=== PATIENT | female | born 1930 | race Caucasian/White ===

== ENCOUNTER 2020-11-28 11:25 | Outpatient (CLI) | payer MEDICARE | END 2020-11-28 11:26 | disposition critical access hospital (66) | LOC: EMS 11:25 | PROVIDERS: ATTEND Emergency Medicine | DX: R45.1 Restlessness and agitation (principal) ==

== ENCOUNTER 2020-11-28 11:41 | Emergency (ER) | payer MEDICARE, OTHER ==
--- NOTE | 2020-11-28 13:52 | ED Physician Documentation ---
History of Present Illness - Stated complaint Stated Complaint: AMS - Chief complaint Chief Complaint: Neuro - History obtained from History obtained from: Other (RN director at [facility] Joanie Wong) - Additonal information Additional information: 89yF with pmh dementia at [facility] memory care unit for past few years p/w gradual onset worsening aggressiveness in the evenings over the past several months, worsening to the point where she was reported by DYANA Nair, director at [facility] to be verbally abusive, screaming and agitated this morning, prompting them to send her to the ed for evaluation. Attempted to contact son several times but unable to do so. Will obtain screening labwork/ua for now. Seroquel 12.5mg daily added 2 weeks ago. Sertraline increased to 50mg daily last week. PMH - cardiac stents, uterine prolapse PSH - hip replacement PD PAST MEDICAL HISTORY - Past Medical History Past Medical History: Yes Cardiovascular: Coronary artery disease Neuro: Alzhiemer's, Dementia - Past Surgical History Past Surgical History: Yes Ortho: Hip replacement - Present Medications Home Medications: Ambulatory Orders Medication Instructions Recorded Confirmed Carbamide Peroxide Otic Drop 4 drops .ROUTE . 11/28/20 11/28/20 [Debrox Otic Drops] Cyanocobalamin (Vitamin B-12) 100 mcg PO DAILY 11/28/20 11/28/20 [Vitamin B-12] LORazepam [Ativan] 0.5 mg PO PRN PRN 11/28/20 11/28/20 Losartan Potassium 25 mg PO DAILY 11/28/20 11/28/20 QUEtiapine [SEROquel] 25 mg PO DAILY 11/28/20 11/28/20 Sertraline HCl [Zoloft] 25 mg PO DAILY 11/28/20 11/28/20 - Social History Does the pt smoke?: No Smoking Status: Never smoker Does the pt drink ETOH?: No Does the pt have substance abuse?: No Results - Vitals Vitals: Vital Signs - 24 hr 11/28/20 11/28/20 11/28/20 11:43 11:50 13:19 Temperature 37.1 C 36.4 C L Heart Rate 91 92 86 Respiratory 15 16 22 Rate Blood Pressure 137/78 H 142/78 H 173/90 H O2 Saturation 93 91 L 94 11/28/20 15:00 Temperature 36.8 C Heart Rate 85 Respiratory 19 Rate Blood Pressure 170/93 H O2 Saturation 93 Oxygen O2 Source Room air - Labs Labs: Laboratory Tests 11/28/20 11/28/20 11/28/20 14:13 14:17 14:17 WBC 8.6 RBC 4.70 Hgb 13.5 Hct 43.1 MCV 91.7 MCH 28.7 MCHC 31.3 L RDW 14.6 Plt Count 268 MPV 9.1 Neut # (Auto) 6.5 Lymph # (Auto) 1.5 [place] # (Auto) 0.5 Eos # (Auto) 0.0 Baso # (Auto) 0.1 Absolute Nucleated RBC 0.00 Nucleated RBC % 0.0 Sodium 143 Potassium 4.1 Chloride 104 Carbon Dioxide 24 Anion Gap 15.0 H BUN 26 H Creatinine 1.4 H Estimated GFR (MDRD) 35 L Glucose 99 Calcium 9.6 Total Bilirubin 1.1 H AST 18 ALT 14 Alkaline Phosphatase 84 Ammonia Total Protein 7.5 Albumin 4.1 Globulin 3.4 Albumin/Globulin Ratio 1.2 Lipase 26 Urine Color YELLOW Urine Clarity CLEAR Urine pH 6.5 Ur Specific [place] 1.020 Urine Protein 30 H Urine Glucose (UA) NEGATIVE Urine Ketones NEGATIVE Urine Occult Blood TRACE-INTA Urine Nitrite NEGATIVE Urine Bilirubin NEGATIVE Urine Urobilinogen 0.2 (NORMAL) Ur Leukocyte Esterase SMALL H Urine RBC None Seen Urine WBC 0-3 Ur Squamous Epith Cells RARE Squamous Amorphous Sediment Rare Urine Bacteria Rare Ur Microscopic Review INDICATED Urine Culture Comments INDICATED 11/28/20 14:38 WBC RBC Hgb Hct MCV MCH MCHC RDW Plt Count MPV Neut # (Auto) Lymph # (Auto) [place] # (Auto) Eos # (Auto) Baso # (Auto) Absolute Nucleated RBC Nucleated RBC % Sodium Potassium Chloride Carbon Dioxide Anion Gap BUN Creatinine Estimated GFR (MDRD) Glucose Calcium Total Bilirubin AST ALT Alkaline Phosphatase Ammonia < 10.0 Total Protein Albumin Globulin Albumin/Globulin Ratio Lipase Urine Color Urine Clarity Urine pH Ur Specific [place] Urine Protein Urine Glucose (UA) Urine Ketones Urine Occult Blood Urine Nitrite Urine Bilirubin Urine Urobilinogen Ur Leukocyte Esterase Urine RBC Urine WBC Ur Squamous Epith Cells Amorphous Sediment Urine Bacteria Ur Microscopic Review Urine Culture Comments PD MEDICAL DECISION MAKING - ED course ED course: 89-year-old woman presents with progressive agitation due to dementia over the past several months. I discussed with her son who states that her sertraline dose was increased a week ago and her Seroquel was started a couple weeks before. We discussed that she may benefit from a higher Seroquel dose and he was agreeable. I spoke with her nurse practitioner, Elvia Verma who will see her tomorrow for possible increase in her Seroquel. Her lab work is stable according to Mrs. Verma. Shared decision not to treat for urinary tract i nfection given the small number of white blood cells on urinalysis. we will call if culture grows out anything. d/w RN director at [facility] who is agreeable to take patient back. return precautions given. Departure - Departure Disposition: 01 Home, Self Care Clinical Impression: Dementia, Agitation due to dementia Condition: Good Instructions: Dementia Comments: Mrs. Gil was seen in the emergency department for agitation related to her dementia. I Discussed with her son, Anson that she would benefit from increasing her dose of Seroquel. Her nurse practitioner, Elvia Miller, is aware of all of her blood results and urinalysis results and is planning on evaluating her tomorrow for possible increase of her Seroquel dose. Ms. Wong was calm in the emergency department. Please have her return if she experiences any new or worsening symptoms or other concerns.
[2020-11-28 14:29] LABS: EOSINOPHILS % (AUTO) 0.2 %; HGB - HEMOGLOBIN 13.5 g/dL (12.0-16.0); MEAN CORPUSCULAR VOLUME 91.7 fL (81.0-99.0); MEAN PLATELET VOLUME 9.1 fL (7.9-10.8)
[2020-11-28 14:30] LABS: BASOPHILS # (AUTO) 0.1 10^3/uL (0.0-0.1); BASOPHILS % (AUTO) 0.9 %; LYMPHOCYTES # (AUTO) 1.5 10^3/uL (1.5-3.5); LYMPHOCYTES % (AUTO) 17.2 %; MEAN CORPUSCULAR HEMOGLOBIN 28.7 pg (27.0-31.0); MEAN CORPUSCULAR HGB CONC 31.3 g/dL (32.0-36.0); MONOCYTES # (AUTO) 0.5 10^3/uL (0.0-1.0); MONOCYTES % (AUTO) 6.2 %; NEUTROPHILS # (AUTO) 6.5 10^3/uL (1.5-6.6); NEUTROPHILS % (AUTO) 75.3 %; PLT - PLATELET COUNT 268 10^3/uL (130-450); RED CELL DISTRIBUTION WIDTH 14.6 % (12.0-15.0); WHITE BLOOD COUNT 8.6 x10^3/uL (4.8-10.8)
[2020-11-28 14:37] LABS: ALBUMIN 4.1 g/dL (3.2-5.5); ALBUMIN/GLOBULIN RATIO 1.2 (1.0-2.2); BILIRUBIN,TOTAL 1.1 mg/dL (0.2-1.0); CALCIUM 9.6 mg/dL (8.5-10.3); CREATININE 1.4 mg/dL (0.4-1.0); TOTAL PROTEIN 7.5 g/dL (6.7-8.2)
[2020-11-28 14:49] LABS: BILIRUBIN,URINE NEGATIVE (NEGATIVE); GLUCOSE, URINE (UA) NEGATIVE (NEGATIVE); KETONES,URINE (UA) NEGATIVE (NEGATIVE); LEUKOCYTE ESTERASE, URINE SMALL (NEGATIVE); NITRITE,URINE NEGATIVE (NEGATIVE); OCCULT BLOOD,URINE TRACE-INTA (NEGATIVE); PH,URINE 6.5 PH (5.0-7.5); PROTEIN,URINE 30 mg/dL (NEGATIVE); UROBILINOGEN,URINE 0.2 (NORMAL) E.U./dL (NORMAL)
[2020-11-28 14:50] LABS: CLARITY,URINE CLEAR (CLEAR)
[2020-11-28 14:57] LABS: AMORPHOUS SEDIMENT,UR Rare /LPF; BACTERIA,URINE Rare /HPF (None Seen); RBC,URINE None Seen /HPF (0-5); SQUAMOUS EPITHELIAL CELL,UR RARE Squamous (<= Few)
[2020-11-28 15:01] VITALS: BP 170/93
== END 2020-11-28 16:22 | disposition home or self-care (01) ==
LOC: ED 11:41
DX: G30.9 Alzheimer's disease, unspecified (principal); F02.81 Dementia in other diseases classified elsewhere, unspecified severity, with behavioral disturbance; R45.1 Restlessness and agitation
CPT/HCPCS: 36415; 80053; 81001; 81003; 82140; 83690; 85025; 87086

== ENCOUNTER 2020-11-28 18:32 | Outpatient (CLI) | payer MEDICARE | END 2020-11-28 18:33 | disposition critical access hospital (66) | LOC: EMS 18:32 | PROVIDERS: ATTEND Emergency Medicine | DX: R45.1 Restlessness and agitation (principal); F03.91 Unspecified dementia, unspecified severity, with behavioral disturbance | CPT/HCPCS: A0425; A0429 ==

== ENCOUNTER 2020-11-28 18:47 | Emergency (ER) | payer MEDICARE, OTHER ==
--- NOTE | 2020-11-28 19:55 | ED Physician Documentation ---
History of Present Illness - Stated complaint Stated Complaint: AMS - Chief complaint Chief Complaint: General - History obtained from History obtained from: EMS - History of Present Illness Timing: Today Pain level max: 0 Pain level now: 0 - Additonal information Additional information: Patient has a history of dementia. Seen here earlier today for increasing agitation over the past several months. Case was discussed with her PCP who will see her tomorrow. They will adjust her medications at that time. When she went back to [facility], she did not want to get off of the transport bus. Therefore they called 911 to have the patient brought back to the emergency department. The facility spoke with the [facility] who stated that a DCR could be dispatched here for possible geropsych placement. Review of Systems Unable to obtain: Dementia PD PAST MEDICAL HISTORY - Past Medical History Past Medical History: Yes Cardiovascular: Coronary artery disease Neuro: Alzhiemer's, Dementia - Past Surgical History Past Surgical History: Yes Ortho: Hip replacement - Present Medications Home Medications: Ambulatory Orders Medication Instructions Recorded Confirmed Carbamide Peroxide Otic Drop 4 drops .ROUTE . 11/28/20 11/28/20 [Debrox Otic Drops] Cyanocobalamin (Vitamin B-12) 100 mcg PO DAILY 11/28/20 11/28/20 [Vitamin B-12] LORazepam [Ativan] 0.5 mg PO PRN PRN 11/28/20 11/28/20 Losartan Potassium 25 mg PO DAILY 11/28/20 11/28/20 QUEtiapine [SEROquel] 25 mg PO DAILY 11/28/20 11/28/20 Sertraline HCl [Zoloft] 25 mg PO DAILY 11/28/20 11/28/20 - Allergies Allergies/Adverse Reactions: Allergies Allergy/AdvReac Type Severity Reaction Status Date / Time Unable to Assess Allergy Verified 11/28/20 22:19 - Social History Does the pt smoke?: No Smoking Status: Never smoker Does the pt drink ETOH?: No Does the pt have substance abuse?: No - Immunizations Immunizations are current?: Yes - POLST Patient has POLST: Yes PD ED PE NORMAL - Vitals Vital signs reviewed: Yes - General General: Other (alert, pleasantly confused) - HEENT HEENT: Atraumatic, Moist mucous membranes - Neck Neck: Supple, no meningeal sign - Cardiac Cardiac: RRR - Respiratory Respiratory: No respiratory distress, Clear bilaterally - Abdomen Abdomen: Soft, Non tender, Non distended - Derm Derm: Warm and dry - Extremities Extremities: No deformity, Normal ROM s pain - Neuro Neuro: Other (alert, disoriented to person, place and time.) Results - Vitals Vitals: Vital Signs - 24 hr 11/28/20 11/28/20 18:54 19:10 Temperature 37.3 C Heart Rate 90 86 Respiratory 16 16 Rate Blood Pressure 159/83 H 159/91 H O2 Saturation 94 92 Oxygen O2 Source Room air - Labs Labs: Laboratory Tests 11/28/20 11/28/20 11/28/20 19:54 19:54 19:54 WBC 7.6 RBC 4.55 Hgb 13.0 Hct 41.6 MCV 91.4 MCH 28.6 MCHC 31.3 L RDW 14.8 Plt Count 252 MPV 8.9 Neut # (Auto) 5.6 Lymph # (Auto) 1.3 L [place] # (Auto) 0.5 Eos # (Auto) 0.0 Baso # (Auto) 0.1 Absolute Nucleated RBC 0.00 Nucleated RBC % 0.0 Sodium 140 Potassium 4.0 Chloride 108 Carbon Dioxide 23 Anion Gap 9.0 BUN 27 H Creatinine 1.4 H Estimated GFR (MDRD) 35 L Glucose 108 H Calcium 9.1 Total Bilirubin 1.2 H AST 17 ALT 12 Alkaline Phosphatase 76 Total Protein 6.9 Albumin 3.7 Globulin 3.2 Albumin/Globulin Ratio 1.2 Lipase 25 TSH 1.12 Salicylates < 6.0 Acetaminophen < 10 L Ethyl Alcohol < 5.0 PD MEDICAL DECISION MAKING - ED course Complexity details: reviewed results, re-evaluated patient, considered differential, d/w patient ED course: DCR was consulted, Deborah, no criteria for involuntary placement. Telepsychiatry will be consulted for medication recommendations. After that I anticipate the patient will be able to be discharged back to her memory care facility. Patient will be signed out to the oncoming emergency department physician awaiting telepsych evaluation for medication adjustments. She is currently on Seroquel and Zoloft only. Would likely benefit from as needed medication for agitation. This document was made in part using voice recognition software. While efforts are made to proofread this document, sound alike and grammatical errors may occur. Departure - Departure Clinical Impression: Agitation due to dementia Dementia Qualifiers: Dementia type: unspecified type Dementia behavioral disturbance: with behavioral disturbance Qualified Code(s): F03.91 - Unspecified dementia with behavioral disturbance Condition: Stable
[2020-11-28 20:02] LABS: BASOPHILS # (AUTO) 0.1 10^3/uL (0.0-0.1); BASOPHILS % (AUTO) 1.1 %; EOSINOPHILS % (AUTO) 0.3 %; LYMPHOCYTES # (AUTO) 1.3 10^3/uL (1.5-3.5); LYMPHOCYTES % (AUTO) 17.5 %; MEAN CORPUSCULAR HEMOGLOBIN 28.6 pg (27.0-31.0); MEAN CORPUSCULAR HGB CONC 31.3 g/dL (32.0-36.0); MEAN CORPUSCULAR VOLUME 91.4 fL (81.0-99.0); MEAN PLATELET VOLUME 8.9 fL (7.9-10.8); MONOCYTES # (AUTO) 0.5 10^3/uL (0.0-1.0); MONOCYTES % (AUTO) 6.8 %; NEUTROPHILS # (AUTO) 5.6 10^3/uL (1.5-6.6); NEUTROPHILS % (AUTO) 73.9 %; PLT - PLATELET COUNT 252 10^3/uL (130-450); RED BLOOD COUNT 4.55 10^6/uL (4.20-5.40); RED CELL DISTRIBUTION WIDTH 14.8 % (12.0-15.0); WHITE BLOOD COUNT 7.6 x10^3/uL (4.8-10.8)
[2020-11-28 20:20] LABS: ACETAMINOPHEN < 10 ug/mL (10-30); ALBUMIN 3.7 g/dL (3.2-5.5); ALBUMIN/GLOBULIN RATIO 1.2 (1.0-2.2); ALKALINE PHOSPHATASE 76 IU/L (42-121); ALT ALANINE AMINOTRANSFERASE 12 IU/L (10-60); AST ASPARTATE AMINOTRANSFERASE 17 IU/L (10-42); BILIRUBIN,TOTAL 1.2 mg/dL (0.2-1.0); BUN - BLOOD UREA NITROGEN 27 mg/dL (6-20); CALCIUM 9.1 mg/dL (8.5-10.3); CARBON DIOXIDE - CO2 23 mmol/L (21-32); CHLORIDE 108 mmol/L (101-111); CREATININE 1.4 mg/dL (0.4-1.0); GLUCOSE 108 mg/dL (70-100); LIPASE 25 U/L (22-51); SALICYLATE < 6.0 mg/dL; TOTAL PROTEIN 6.9 g/dL (6.7-8.2)
--- NOTE | 2020-11-29 01:35 | TELEPSYCH PHYS NOTE ---
Telepsych Note - CHIEF COMPLAINT/HX OF PRESENT ILLNESS Chief Complaint and History of Present Illness: PT is a 89y/o wf brought in from her memory care unit due to agitation. She was discharged back to the unit with recommendations for follow up with her outpatient provider later today. Pt reportedly refused to go back to the memory care facility and was subsequently brought back to the ED. She was assessed by DCR and not follow to meet psych inpatient criteria. It was requested for medication management of agitation. HPI: Pt is a 89 y/o wf with dementia who currently resides at a memory care unit. She was unable to provide history due to level of cognitive decline. PT said she did not know where she was or why. She answered "I don't know" to all questions asked to include how her mood was and if she was able to sleep. - SI/HI/SELF HARM SI/HI/Self Harm Text (Current or History of):: Pt did not know if she had ever harmed herself. It was reported that she was sent from the memory unit due to agitation. - VIOLENCE/LEGAL/COLLATERAL Violence - Legal - Collateral: none known - PSYCHIATRIC HX/TREATMENT HX Psychiatric/Treatment Hx Other: mental health history is unknown. Pt current dx'd with Alzheimer dementia. - DRUG/ALCOHOL HX Substance use/abuse/alcohol text: no current substance issues. - MEDICAL HX Does the pt have a hx of MRSA?: No Neurological History: Alzhiemer's, Dementia Cardiovascular: Coronary artery disease - SURGICAL HX Orthopedic: Hip replacement - HOME MEDICATIONS Home Meds (as last confirmed): Patient History Medication Instructions Recorded Confirmed Carbamide Peroxide Otic Drop 4 drops .ROUTE . 11/28/20 11/28/20 [Debrox Otic Drops] Cyanocobalamin (Vitamin B-12) 100 mcg PO DAILY 11/28/20 11/28/20 [Vitamin B-12] LORazepam [Ativan] 0.5 mg PO PRN PRN 11/28/20 11/28/20 Losartan Potassium 25 mg PO DAILY 11/28/20 11/28/20 QUEtiapine [SEROquel] 25 mg PO DAILY 11/28/20 11/28/20 Sertraline HCl [Zoloft] 25 mg PO DAILY 11/28/20 11/28/20 - ALLERGIES Allergies (as last confirmed): Allergies Allergy/AdvReac Type Severity Reaction Status Date / Time Unable to Assess Allergy Verified 11/28/20 22:19 - FAMILY PSYCH/SUICIDE/SOCIAL HX-MENTAL Family - Suicide - Social Hx and Mental Status Exam: family hx is unknown Social history. Pt reported to live at a memory care unit. further history is unknown. MSE: Pt was somewhat unkempt but quite pleasant and calm at the time of assessment. She presented as confused and disoriented. She was unable to provide any history, softly answering "I don't know" to all questions asked and then mumbling incoherently. insight and judgment were poor. - PATIENT PROBLEM LIST (1) Dementia with behavioral disturbance Qualifiers: Dementia type: Alzheimer's Alzheimer's disease onset: unspecified onset Qualified Code(s): G30.9 - Alzheimer's disease, unspecified; F02.81 - Dementia in other diseases classified elsewhere with behavioral disturbance Impression: Pt is a 89y/o wf with h/o dementia, currently residing at an dementia unit. She was brought in due to agitation and aggression. Upon return to the unit, she refused to go in and was subsequently brought back to the Ed. Pt currently presents calm and cooperative but very confused and disoriented. She was not able to provide any history. He speech was soft and she mumbled incoherently. She provided some eye contact but predominantly stared blankly ahead. She was screened by DCR and determined not be meet commitment criteria. It was requested for medication management of agitation for safe return to her care unit. - TREATMENT/PHARMACOLOGICAL RECOMMENDATION Treatment - Pharmacological - Therapy Recommendations: 1. REcommend EKG to assess QTC. IF greater than 500, hold antipsychotics. QTC less than 500, recommend increase and divide Seroquel to 12.5mg po qam and 25mg po qhs 2. Add zyprexa zydis 2.5mg po bid prn severe agitation/psychosis 3. continue zoloft 25mg po qd 4. Refrain from benzos as they can contribute to disinhibition, confusion and falls. 5. maintain consistent staff when possible, clear room of clutter and noise that may contribute to confusion - TIME SPENT & PROVIDER LOCATION Telepsych consultation conducted via videoconferencing: Yes List names and roles of persons who participated in consult: Patient, nurse and Dr Sarmiento Telepsych Provider Location: [place] Time Telepsych consult began: 04:30 Time Telepsych consult completed: 05:00
[2020-11-29 07:17] VITALS: BP 158/89
== END 2020-11-29 07:30 | disposition home or self-care (01) ==
LOC: EDUNIT# → ED 18:47
DX: G30.9 Alzheimer's disease, unspecified (principal); F02.81 Dementia in other diseases classified elsewhere, unspecified severity, with behavioral disturbance; R45.1 Restlessness and agitation
CPT/HCPCS: 36415; 80053; 80307; 81001; 82140; 83690; 84443; 85025; 87086; 93005; G0480; 80320; 80329; 81003

== ENCOUNTER 2020-11-29 07:46 | Outpatient (CLI) | payer MEDICARE | END 2020-11-29 07:47 | disposition home or self-care (01) | LOC: EMS 07:46 | DX: R41.0 Disorientation, unspecified (principal) | CPT/HCPCS: A0425; A0428 ==

== ENCOUNTER 2021-01-14 11:10 | Outpatient (CLI) | payer MEDICARE | END 2021-01-14 11:11 | disposition critical access hospital (66) | LOC: EMS 11:10 | PROVIDERS: ATTEND Emergency Medicine | DX: R07.81 Pleurodynia (principal); R14.0 Abdominal distension (gaseous) | CPT/HCPCS: A0425; A0429 ==

== ENCOUNTER 2021-01-14 11:25 | Emergency (ER) | payer MEDICARE ==
[2021-01-14] MEDS ORDERED: SODIUM CHLORIDE 0.9% 1,000 ML IV STA (11:41)
[2021-01-14 12:12] LABS: BASOPHILS # (AUTO) 0.1 10^3/uL (0.0-0.1); BASOPHILS % (AUTO) 1.5 %; EOSINOPHILS # (AUTO) 0.3 10^3/uL (0.0-0.7); EOSINOPHILS % (AUTO) 3.5 %; HGB - HEMOGLOBIN 12.6 g/dL (12.0-16.0); LYMPHOCYTES # (AUTO) 1.4 10^3/uL (1.5-3.5); LYMPHOCYTES % (AUTO) 17.3 %; MEAN CORPUSCULAR HEMOGLOBIN 28.8 pg (27.0-31.0); MEAN CORPUSCULAR HGB CONC 30.7 g/dL (32.0-36.0); MEAN CORPUSCULAR VOLUME 93.6 fL (81.0-99.0); MEAN PLATELET VOLUME 8.8 fL (7.9-10.8); MONOCYTES # (AUTO) 0.7 10^3/uL (0.0-1.0); MONOCYTES % (AUTO) 8.2 %; NEUTROPHILS # (AUTO) 5.7 10^3/uL (1.5-6.6); NEUTROPHILS % (AUTO) 69.3 %; PLT - PLATELET COUNT 298 10^3/uL (130-450); RED BLOOD COUNT 4.38 10^6/uL (4.20-5.40); RED CELL DISTRIBUTION WIDTH 14.3 % (12.0-15.0); WHITE BLOOD COUNT 8.2 x10^3/uL (4.8-10.8)
--- NOTE | 2021-01-14 12:15 | XRAY Report ---
PROCEDURE: Ribs w/PA Chest RT INDICATIONS: fall/pain TECHNIQUE: 3 views of the right sided ribs were acquired, along with a single view chest. COMPARISON: FINDINGS: Surgical changes and devices: None. Bones and chest wall: Minimally displaced lateral right seventh rib fracture. There are several heale d remote anterolateral right-sided rib fractures. No suspicious bony lesions. Overlying soft tissues appear unremarkable. Lungs and pleura: No pleural effusions or pneumothorax. Lungs appear clear. Mediastinum: Heart is mildly enlarged with pulmonary vascular congestion. The aorta is tortuous. Ther e is vascular calcification of the aorta. IMPRESSION: Minimally displaced lateral right seventh rib fracture. No pneumothorax. Mild cardiomegaly with pulmonary vascular congestion. Reviewed by: Sony Parra on 01/14/2021 11:14 AM DEANA Approved by: Sony Parra on 01/14/2021 11:14 AM DEANA Station ID: [id number]
[2021-01-14 12:26] LABS: ALBUMIN 3.4 g/dL (3.2-5.5); BILIRUBIN,TOTAL 0.6 mg/dL (0.2-1.0); CALCIUM 8.8 mg/dL (8.5-10.3); CREATININE 1.8 mg/dL (0.4-1.0); POTASSIUM 4.5 mmol/L (3.5-5.0); TOTAL PROTEIN 6.8 g/dL (6.7-8.2)
--- NOTE | 2021-01-14 13:30 | ED Physician Documentation ---
History of Present Illness - Stated complaint Stated Complaint: GLF - Chief complaint Chief Complaint: Trauma Abd - History obtained from History obtained from: EMS - Additonal information Additional information: Patient is brought to the emergency department by EMS after chief complaint of ground-level fall and right rib pain. The patient apparently had an unwitnessed fall yesterday at [facility] and seemed to be okay, so they put her back in bed. However, this morning patient was complaining of right rib pain and so they decided to send her in. Patient is demented and cannot answer only very simple questions. She does indicate that her right ribs hurt but denies any other complaints at this time. Review of Systems Unable to obtain: Dementia PD PAST MEDICAL HISTORY - Past Medical History Cardiovascular: Coronary artery disease Neuro: Alzhiemer's, Dementia - Past Surgical History Past Surgical History: Yes Ortho: Hip replacement - Present Medications Home Medications: Ambulatory Orders Medication Instructions Recorded Confirmed Carbamide Peroxide Otic Drop 4 drops .ROUTE . 11/28/20 11/28/20 [Debrox Otic Drops] Cyanocobalamin (Vitamin B-12) 100 mcg PO DAILY 11/28/20 11/28/20 [Vitamin B-12] LORazepam [Ativan] 0.5 mg PO PRN PRN 11/28/20 11/28/20 Losartan Potassium 25 mg PO DAILY 11/28/20 11/28/20 QUEtiapine [SEROquel] 25 mg PO DAILY 11/28/20 11/28/20 Sertraline HCl [Zoloft] 25 mg PO DAILY 11/28/20 11/28/20 OLANZapine [Zyprexa Zydis] 2.5 mg PO BID #30 11/29/20 - Allergies Allergies/Adverse Reactions: Allergies Allergy/AdvReac Type Severity Reaction Status Date / Time Unable to Assess Allergy Verified 01/14/21 11:43 - Social History Does the pt smoke?: No Smoking Status: Never smoker Does the pt drink ETOH?: No Does the pt have substance abuse?: No - Immunizations Immunizations are current?: Yes - POLST Patient has POLST: Yes PD ED PE NORMAL - Vitals Vital signs reviewed: Yes - General General: No acute distress - HEENT HEENT: PERRL, EOMI, Moist mucous membranes, Other (Old, yellow contusion noted over the nasal bridge. No edema. No deformity.) - Neck Neck: Supple, no meningeal sign - Cardiac Cardiac: RRR, No murmur, Strong equal pulses - Respiratory Respiratory: No respiratory distress, Clear bilaterally - Abdomen Abdomen: Soft, Non tender, Non distended - Female Female : Other (Large-scale vaginal prolapse with mild rectal prolapse. No bleeding or other discharge.) - Derm Derm: Normal color, Warm and dry, No rash, Other (Various mild contusions in various stages of chronicity. No contusion over right rib cage.) - Extremities Extremities: No deformity, No tenderness to palpate, No edema, No calf tenderness / cord - Neuro Neuro: Other (Patient is awake and answers to her name. She is able to indicate that it hurts over her right ribs.) - Psych Psych: Normal mood, Normal affect PD ED PE EXPANDED - Free text exam Free text exam: Moderate tenderness palpation over right lateral rib cage inferiorly. No step- off or crepitus. Results - Vitals Vitals: Vital Signs - 24 hr 01/14/21 11:25 Temperature 36.0 C L Heart Rate 78 Respiratory 22 Rate Blood Pressure 149/80 H O2 Saturation 97 Oxygen O2 Source Room air - Labs Labs: Laboratory Tests 01/14/21 01/14/21 11:55 11:55 WBC 8.2 RBC 4.38 Hgb 12.6 Hct 41.0 MCV 93.6 MCH 28.8 MCHC 30.7 L RDW 14.3 Plt Count 298 MPV 8.8 Neut # (Auto) 5.7 Lymph # (Auto) 1.4 L [place] # (Auto) 0.7 Eos # (Auto) 0.3 Baso # (Auto) 0.1 Absolute Nucleated RBC 0.00 Nucleated RBC % 0.0 Sodium 141 Potassium 4.5 Chloride 107 Carbon Dioxide 26 Anion Gap 8.0 BUN 33 H Creatinine 1.8 H Estimated GFR (MDRD) 26 L Glucose 106 H Calcium 8.8 Total Bilirubin 0.6 AST 16 ALT 15 Alkaline Phosphatase 92 Total Protein 6.8 Albumin 3.4 Globulin 3.4 Albumin/Globulin Ratio 1.0 Lipase 30 - Rads (name of study) R ribs/chest XR Radiology: Final report received, EMP read indepedently, See rad report (neg) CT head Radiology: Final report received, EMP read indepedently, See rad report (nad) PD MEDICAL DECISION MAKING - ED course Complexity details: reviewed old records, reviewed results, re-evaluated patient, considered differential ED course: Patient was worked up with labs, x-ray of the ribs and chest, and CT of the head, all of which were unremarkable. We did speak with the [place] [facility] and found that the vaginal and rectal prolapse were chronic and the patient actually has an appointment with [facility] [employer] [employer] in 2 days to address this. Patient remained stable here in the emergency department and I did not find an emergent condition. I felt she was stable for discharge home we have discussed home management of symptoms, as well as the usual indications for return. Departure - Departure Disposition: 01 Home, Self Care Clinical Impression: Fall Qualifiers: Encounter type: initial encounter Qualified Code(s): W19.XXXA - Unspecified fall, initial encounter Condition: Stable Instructions: ED Fall Uncertain Cause Comments: The labs, x-rays, and CT scan all look good. Please have Ms. Gil keep her appointment with her dressage instructor, regarding her vaginal and rectal prolapse.
--- NOTE | 2021-01-14 13:36 | CT Report ---
PROCEDURE: HEAD WO INDICATIONS: fall/injury TECHNIQUE: Noncontrast 4.5 mm thick angled axial sections acquired from the foramen magnum to the vertex. For r adiation dose reduction, the following was used: automated exposure control, adjustment of mA and/or kV according to patient size. COMPARISON: None. FINDINGS: Image quality: Excellent. CSF spaces: Basal cisterns are patent. No extra-axial fluid collections. Ventricles are normal in size and shape. Brain: No midline shift. No intracranial masses or hemorrhage. Boyer-white matter interface is norm al. Skull and face: Calvarium and visualized facial bones are intact, without suspicious lesions. Sinuses: Visualized sinuses and mastoids are clear. IMPRESSION: No acute intracranial abnormality. No skull fracture. Reviewed by: Sony Parra on 01/14/2021 12:34 PM DEANA Approved by: Sony Parra on 01/14/2021 12:34 PM DEANA Station ID: [id number]
[2021-01-14 13:38] VITALS: BP 149/87
--- OUTSIDE RECORDS SUMMARY | 2021-01-17 02:42 | EXTERNAL MEDICAL SUMMARY RPT | Continuity of Care Document ---
:1930 Demographics Phone Unavailable Preferred Language Unknown Marital Status Unknown Episcopal Affiliation Unknown Race Unknown Ethnic Group Unknown Author Organization [facility] Address [address] [place] [address] Phone Social History date description facility [id number]
== END 2021-01-14 14:20 | disposition home or self-care (01) ==
LOC: EDUNIT# → ED 11:25
DX: S22.31XA Fracture of one rib, right side, initial encounter for closed fracture (principal); W18.30XA Fall on same level, unspecified, initial encounter; Y92.129 Unspecified place in nursing home as the place of occurrence of the external cause; G30.9 Alzheimer's disease, unspecified; F02.80 Dementia in other diseases classified elsewhere, unspecified severity, without behavioral disturbance, psychotic disturbance, mood disturbance, and anxiety; N81.10 Cystocele, unspecified; K62.3 Rectal prolapse
CPT/HCPCS: 36415; 80053; 83690; 85025; 96360; 96361; 99281